=== PATIENT | female | born 1960 | race Hispanic/Latino ===

== ENCOUNTER 2016-07-22 13:12 | Outpatient (CLI) | payer BC ==
--- NOTE | 2016-07-22 15:10 | Cat Scan Report ---
CT ABDOMEN AND PELVIS WITH CONTRAST: 07/22/16 13:12:00 CLINICAL: Abdominal pain. COMPARISON: 01/05/13 TECHNIQUE: Volumetric acquisition and 1.25 millimeter scan reconstructions after the uneventful intravenous injection of 100 cc Omnipaque 300. Consent was obtained prior to the administration of contrast. Oral contrast was also given. FINDINGS: Abdomen: Clear lung bases.Normal liver, bile ducts and gallbladder. Normal stomach, duodenum, pancreas and spleen. Normal adrenal glands and kidneys. The renal collecting systems and ureters are nondilated. Normal aorta and inferior vena cava. Normal small bowel. The terminal ileum is normal. Normal ascending, transverse and descending colon. The appendix is well imaged and normal. No mass, lymphadenopathy or ascites.No pneumoperitoneum. Pelvis: Healed midline infraumbilical surgical scar. Absence of the uterus is normal vaginal cuff. Normal urinary bladder.Ovaries are not identified. No adnexal mass or free fluid. Normal rectum and sigmoid colon. Bone windows demonstrate no bone lesion. IMPRESSION:1. Normal abdomen. 2. Normal pelvis status post hysterectomy.
== END 2016-07-22 13:13 | disposition home or self-care (01) ==
LOC: SPVIMAG 13:12
PROVIDERS: ATTEND Internal Medicine
DX: R10.31 Right lower quadrant pain (principal); Z90.710 Acquired absence of both cervix and uterus
CPT/HCPCS: 74177; Q9967